=== PATIENT | male | born 1950 | race Caucasian/White ===

== ENCOUNTER → 2016-11-22 | Outpatient (CLI) | payer MEDICARE ==
--- NOTE | 2016-11-22 12:10 | RAD ---
Ultrasound venous Doppler lower extremity Indication: Left leg pain Technique: Grayscale, color Doppler and spectral waveform ultrasound images of the left lateral deep veins. Comparison: None Findings: The interrogated deep veins are compressible and demonstrate normal respiratory variation with response to augmentation. Impression: No sonographic evidence of acute DVT of the interrogated left lower extremity deep veins.
--- NOTE | 2016-11-22 13:25 | RAD ---
TIBIA FIBULA LEFT, AP, lateral Clinical Indication: PAIN IN LEFT LEG Comparison: None. Findings: No acute fracture or malalignment. Joint spaces are maintained. Bony mineralization is normal for the patient's age. No significant soft tissue abnormality. No radiopaque foreign body. IMPRESSION: No acute fracture or malalignment.
== END | disposition home or self-care (01) ==
LOC: US 11:21
PROVIDERS: ATTEND Nurse Practitioner Family
DX: M79.605 Pain in left leg (principal)
CPT/HCPCS: 73590; 93971